=== PATIENT | male | born 1990 | race Caucasian/White ===

== ENCOUNTER 2024-03-25 15:57 | Outpatient (OUT) | payer OTHER, SELFPAY | END 2024-03-25 15:58 | disposition home or self-care (01) | LOC: SLEEP 15:57 | PROVIDERS: PCP Nurse Practitioner Family; Visit Provider Nurse Practitioner Family | DX: G47.33 Obstructive sleep apnea (adult) (pediatric) (principal) | CPT/HCPCS: 95806 ==

== ENCOUNTER 2024-04-22 20:55 | Outpatient (OUT) | payer OTHER, SELFPAY ==
--- OUTSIDE RECORDS SUMMARY | 2024-04-22 20:57 | XMS_ITS | CCD ---
Author Organization [facility] CliniSysd Care Team Providers Care Software Quality Manager Name Role Phone RONNIE VERENICE Unavailable Unavailable NARCISO PETERSEN Unavailable Unavailable NO FAMILY DOCTOR, NO FAMILY DOCTOR Unavailable Unavailable Medications Current Medications Medication Drug Class(es) Dates Sig (Normalized) Sig (Original) omeprazole 10 mg granules for oral suspension (1 source) Proton Pump Inhibitor Start: 04-30-2018 take 10 mg by mouth once daily Omeprazole Magnesium (Prilosec) 10 mg Susp,Delayed Release For Recon Active 10 MG PO Daily April 30, 2018 1:00am Completed/Discontinued Medications Medication Drug Class(es) Dates Sig (Normalized) Sig (Original) cephalexin 500 mg oral capsule (1 source) Cephalosporin Antibacterial Start: 04-30-2018 End: 05-07-2018 take 1 capsule by mouth four times daily Cephalexin (Keflex) 500 mg capsule Discontinued 500 MG PO Four times daily 28 April 30, 2018 1:00am May 07, 2018 1:02am Problems Active Problems Problem Classification Problem Date Documented Da te Episodic/Chronic Coma; stupor; and brain damage (2 sources) Daytime somnolence; Translations: [Somnolence] 02-28-2024 Episodic Other lower respiratory disease (1 source) Snoring; Translations: [Snoring] 02-28-2024 Episodic Other lower respiratory disease (1 source) Snoring; Translations: [Other respiratory abnormalities] 02-28-2024 Episodic Other skin disorders (1 source) Nodule of skin of left hand; Translations: [Localized swelling, mass and lump, left upper limb] 02-28-2024 Episodic Other skin disorders (1 source) Nodule on finger; Translations: [Localized swelling, mass and lump, right upper limb] 02-28-2024 Episodic Other skin disorders (1 source) Localized swelling, mass and lump, right upper limb; Translations: [Localized superficial swelling, mass, or lump] 02-28-2024 Episodic Residual codes; unclassified (1 source) Sleep apnea; Translations: [Sleep apnea, unspecified] 02-28-2024 Chronic Residual codes; unclassified (1 source) Sleep apnea, unspecified; Translations: [Unspecified sleep apnea] 02-28-2024 Chronic Substance-related disorders (2 sources) Nicotine dependence; Translations: [Nicotine dependence, unspecified, uncomplicated] 02-28-2024 Chronic Superficial injury; contusion (1 source) Contusion of left elbow, initial encounter; Translations: [Contusion of left elbow, initial encounter] Onset: 2018 Episodic Unclassified (2 sources) Unspecified sprain of left elbow, initial encounter / S53.402A(ICD-9) Onset: 01-23-2018 Unclassified (1 source) Contusion of left elbow, initial encounter / S50.02XA(ICD-9) Onset: 01-23-2018 Past or Other Problems Problem Classification Problem Date Documented Da te Episodic/Chronic Unclassified (1 source) Unspecified sprain of left elbow, initial encounter; Translations: [Unspecified sprain of left elbow, initial encounter] Onset: 01-23-2018 Results Test Name Value Interpretation Reference Range Facil ity ED Note-Physicianon 02-29-20 ED Note-Physician Basic Information Time Seen: Jc Stark PA-C 02/17/2019 17:47 Chief Complaint Pt via private car, mult Lg dog bites from fam cy[employer]-attempted to break up 2 dogs fight. Sts dog uptodate on shots, pt upto date tetanus. Pt felt mult 'crunches' to both hands, open/gaping mult lacs to both hands, MSP intact. T3. 5 shots etoH History of Present Illness Patient is a 29-year-old male who is left-hand dominant, presents emergency room for dog bites to his left and right hand, states to his dogs were fighting he try baking apart, not sure which dog bit him. Patient states injury occurred about 20 minutes before seen in the emergency room. Patient states his tetanus is up-to-date. Patient states he was not been anywhere else on his arms. Patient states he has not been in his thumbs. Patient denies any fevers, chills, nausea vomiting, abdominal pain, chest pain, shortness of breath, dizziness, or weakness. Review of Systems All organ systems reviewed. Pertinent positive and negative findings were mentioned in the HPI. Physical Exam Vitals & Measurements T: 37.1 ?C (Oral) HR: 130(Peripheral) RR: 22 BP: 143/76 SpO2: 95% HT: 185 cm WT: 105.8 kg BMI: 30.91 General: alert, mild distress, patient appears pale, smells of tobacco, no facial injuries are noted, pleasant and cooperative, very anxious appearing as well, answers questions appropriately and in complete sentences, and follows commands appropriately. Skin: warm, dry there is a 4 cm laceration that dorsal surface of left hand near the fourth and third metacarpal head, no the puncture wounds are noted on the left hand. There is a small puncture wound on the dorsal surface of the right hand, near the third metacarpal head, there is another puncture wound on the palm surface of the third finger, there is a 4 cm laceration in the medial aspects of the right fifth finger, extends from the tip of the finger to right below the PIP joint. Head: no trauma, normocephalic Neck: Trachea midline, no adenopathy, no tenderness Eye: normal conjunctiva, sclera clear ENMT: TM's clear, oral mucosa moist, no pharyngeal erythema or exudate Cardiovascular: regular rate and rhythm, normal peripheral perfusion Respiratory: Lungs CTA, respirations non labored Chest wall: no deformity. Gastrointestinal: soft, non distended, no tenderness, no guarding. Back: No tenderness, Normal ROM, Normal alignment. Extremities: no deformity, mild trauma. See skin exam. Patient does have difficulty with going fingers in both his hands. No other injuries are noted on the hands as well as the fingers and forearms and wrists. Patient does have increased pain on examination. Patient agrees to digital blocks for further evaluation. Neurological: oriented x 4, LOC appropriate for age, CN II-XII intact, motor strength equal & normal bilaterally, sensation equal & normal bilaterally, speech normal Psychiatric: cooperative, affect appropriate for age, normal judgement, normal psychiatric thoughts. Procedure Left dorsal 4 cm laceration, right fifth finger with a 4 cm laceration on the medial aspects of the finger, there is also a 1 cm laceration palm surface near the right middle finger: Digital blocks with lidocaine and bupivacaine, wounds were cleansed and irrigated with Hibiclens and normal saline, there was no tenderness ligament exposure, no deformity was noted, left dorsal hand was closed with 7 sutures of 3-0 nylon, and the right fifth finger was closed with 7 sutures of 3-0 nylon as well, patient verbally understands that complete closure of the laceration repairs, secondary to dog bites and possible increase of infection, as whether was room left for drainage. Patient tolerated procedure well. Wounds were cleansed again and bacitracin and sterile dressings were applied. Patient was given wound care instructions. All questions were answered. Medical Decision Making Vital signs reviewed. Nursing notes reviewed. Medical record reviewed. Hand injury workup: Imaging of both hands for trauma related injuries secondary to dog bites, digital blocks with lidocaine and bupivacaine, and orthopedic consult. IM morphine 4 mg. Patient's tetanus is up-to-date. No labs indicated at this time. Patient states his tetanus is up-to-date. 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 No acute bony process was noted on imaging, there was no tenderness or ligament exposure during hand examination, wounds were irrigated with hibiclens and normal saline, wounds were partially closed, to allow for drainage, patient verbally understood why they cannot be apparently closed. She had no reaction to Ancef antibiotic. Patient has symptom relief with IM morphine. Patient was given a prescription for Augmentin and Percocet, patient was instructed not to drink any alcohol taking Augmentin, patient was given wound care instructions, patient was instructed to follow with Dr. Kiel sherwood orthopedic doctor program evaluation consultant, as well as Dr. Rojas medical doctor on-call, hasn't seen Dr. Menendez, call the offices to schedule an appointment to be seen in 3 days or sooner for wound check and suture removal wall 10-12 days, patient was also instructed to return back to emergency room for any worsening symptoms, concerns, or complications, and patient agree with plan. Assessment/Plan 1. Dog bite (W54.0XXA: Bitten by dog, initial encounter) Ordered: acetaminophen-oxycodon e, 1 tab(s), Oral, TID as needed for pain, 15 tab(s), Refill(s) 0 2. Puncture wound without foreign body of right hand, initial encounter (S61.431A: Puncture wound without foreign body of right hand, initial encounter) 3. Hand injury (S69.90XA: Unspecified injury of unspecified wrist, hand and finger(s), initial encounter) Orders: amoxicillin-clavulanat e, = 1 tab(s), Oral, q12hr, X 10 day(s), # 20 tab(s), Refills(s) 0 bupivacaine, 150 mg, 30 mL, Injection, IntraDermal, Once, Stop date 02/17/19 17:52:00 EDT, STAT, Start date 02/17/19 17:52:00 EDT cefazolin, 2 gram = 2 EA, Injection, IntraMuscular, Once, Stop date 02/17/19 19:24:00 EDT, STAT, Start date 02/17/19 19:24:00 EDT lidocaine, 10 mg, 1 mL, Injection, IntraDermal, Once, Stop date 02/17/19 17:52:00 EDT, STAT, Start date 02/17/19 17:52:00 EDT morphine, 4 mg = 2 mL, Injection, IntraMuscular, Once, Stop date 02/17/19 17:52:00 EDT, STAT, Start date 02/17/19 17:52:00 EDT ondansetron, 4 mg = 1 tab(s), Tab-Dis, Oral, Once, Stop date 02/17/19 18:16:00 EDT, STAT, Start date 02/17/19 18:16:00 EDT Wound Care Routine XR Hand 3+ Views Left XR Hand 3+ Views Right Medications Administered Given bupivacaine 0.5% PF Inj 30 mL, 150 mg, IntraDermal ceFAZolin 1 g Inj, 2 gram, IntraMuscular lidocaine 1% Injection 20 mL, 10 mg, IntraDermal morphine 2 mg/mL Inj, 4 mg, IntraMuscular Zofran ODT 4 mg Tab-Dis, 4 mg, Oral Disposition Plan Patient Discharge Condition Stable Discharge Prescription List Prescriptions Augmentin 875 mg oral tablet, 1 tab(s), Oral, q12hr Percocet 325 mg-5 mg Tab, 1 tab(s), Oral, TID, PRN Follow-up With When Contact Information Ben ROJAS In 3 days 02/20/2019 EDT [address] [place] [address]- Business (1) Additional Instructions: Please follow-up with Dr. Kapoor, orthopedic doctor program evaluation consultant, and Dr. Rojas, medical doctor program evaluation consultant, call her office to schedule appointments to be seen in 3 days or sooner for wound check, and suture removal in about 10-12 days, please keep your wound clean and dry, though be drainage, there was not a complete closure because of dog bites and increase chance of infection, take her Augmentin and Percocet prescribed, and return to emergency room for any worsening symptoms, concerns, or complications. Abrahan Kapoor In 3 days 02/20/2019 EDT [address] [place] [address]- Business (1) Additional Instructions: Johana Menendez In 3 days [address] [place] [phone]- Business (1) Additional Instructions: Patient Education Sutured Wound Care, [place] Animal Bite, Ylfx-ov-Usrv Attestation Patient was treated and evaluated by the Physician Glassware Selector. The attending physician was Dr. Gómez in the Emergency Department at all times and supervised care. The case was discussed with the attending physician and diagnostics were reviewed as needed. Problem List/Past Medical History Ongoing Smoker Historical No qualifying data Medications Inpatient No active inpatient medications Home Augmentin 875 mg oral tablet, 1 tab(s), Oral, q12hr ibuprofen [facility] 325 mg-5 mg oral tablet, 1 tab(s), Oral, q4hr, PRN Percocet 325 mg-5 mg Tab, 1 tab(s), Oral, TID, PRN Allergies No Known Allergies Social History Alcohol - High Risk, 02/17/2019 Current, Liquor, 3-5 times per week, 02/17/2019 Current, 1-2 times per week, 05/01/2018 Substance Abuse - Denies Substance Abuse, 02/17/2019 Current, Marijuana, 05/01/2018 Tobacco - High Risk, 02/17/2019 10 or more cigarettes (1/2 pack or more)/day in last 30 days Tobacco Use:. Cigarettes, 02/17/2019 Lab Results No qualifying data available. Diagnostic Results XR Hand 3+ Views Left * Preliminary * 02/17/19 19:31:11 : Soft tissue swelling, No bony fractures noted, no foreign body retention. Read By: Jc Stark PA-C XR Hand 3+ Views Right * Preliminary * 02/17/19 19:31:26 : Soft tissue swelling, no acute bony processes noted. Read By: Jc Stark PA-C [facility] Comment on above: Result Comment: Elec tronically Signed By: Jc Stark PA-C\.br\Date and Time Signed: 02/17/19 20:25 EDT\.br\Electronically Co-Signed By: Nando Gómez DO\.br\Date and Time Co-Signed: 02/28/19 07:09 EDT Coding Summary.on 02-19-2019 Coding Summary. CODING DATE: 02/19/2019 FINAL [facility] STATUS: Home (Routine DC) PAYOR: Commercial Insurance APC DESCRIPTION 5023 Level 3 Type A ED Visits ADMIT DX: REASON FOR VISIT DX: S61.452A Open bite of left hand, initial encounter S61.451A Open bite of right hand, initial encounter FINAL DX: PRINCIPAL: S61.452A Open bite of left hand, initial encounter SECONDARY: S61.256A Open bite of right little finger without damage to nail, initial encounter S61.431A Puncture wound without foreign body of right hand, initial encounter W54.0XXA Bitten by dog, initial encounter F17.210 Nicotine dependence, cigarettes, uncomplicated PYMT PROC APC STAT DESCRIPTION DOCTOR NAME DATE NOTE: The code number assigned matches the documented diagnosis and / or procedure in the patient's chart. However, the narrative phrase printed from the coding software may appear abbreviated, or result in slightly different terminology. Revised Coded By: Edyta Jones Revised Date Saved: 02/19/2019 11:20 am [facility] XR Hand 3+ Views Lefton XR Hand 3+ Views Left Exam Date/Time: 02/17/2019 18:16 EDT Reason for Exam: Pain, Traumatic Report IMPRESSION: NEGATIVE LEFT HAND ACUTE FRACTURE OR DISLOCATION. SOFT TISSUE INJURY WITHOUT RADIOPAQUE FOREIGN BODY. CLINICAL HISTORY: Pain, Traumatic COMPARISONS: 04/15/2018 FINDINGS: AP, lateral and oblique views of the left hand demonstrate no evidence of fracture, dislocation, bone or joint abnormality, except for old healed fracture of the second metacarpal. There is soft tissue injury over the lateral aspect of the second metacarpal head and neck. There are no radiopaque foreign body. FINAL REPORT Dictated: 02/18/2019 7:09 am Carlton Cole M.D. Signed (Electronic Signature): 02/18/2019 7:09 am Signed by: Carlton Cole M.D. Transcribed by: ANGELI Technologist: JEREMIE Eduardo [facility] XR Hand 3+ Views Righton XR Hand 3+ Views Right Exam Date/Time: 02/17/2019 18:16 EDT Reason for Exam: Pain, Traumatic Report IMPRESSION: NEGATIVE RIGHT HAND FOR ACUTE FRACTURE OR DISLOCATION. SOFT TISSUE LACERATION. CLINICAL HISTORY: Pain, Traumatic COMPARISONS: NONE AVAILABLE FINDINGS: AP, lateral and oblique views of the right hand demonstrate no evidence of fracture, dislocation, bone or joint abnormality. There is a soft tissue laceration over the right and between second and third MP joint area. FINAL REPORT Dictated: 02/18/2019 7:04 am Carlton Cole M.D. Signed (Electronic Signature): 02/18/2019 7:04 am Signed by: Carlton Cole M.D. Transcribed by: ANGELI Technologist: JEREMIE Eduardo [facility] ED Clinical Summaryon 2018 ED Clinical Summary [place] [id number] ED Clinical Summary Person Information Name: SHEILA FARMER [place] Age: 29 Years : 1990 12:00 AM Sex: Male Language: Beninese PCP: Johana Menendez DO Marital Status: Single Phone: [phone] Visit Id: Visit Reason: Multiple lacerations; Injury caused by animal bite; BOTH HANDS LACERATION Speciality: Acuity: 3 Enc Type: Emergency Med Service: Emergency Arrival: 02/17/2019 5:28 PM Discharge: 02/17/2019 7:59 PM LOS: 000 02:31 Checkin: 02/17/2019 5:28 PM Checkout: 02/17/2019 7:59 PM Dispo Type: Home (Routine DC) EVENTS: Event Name Event Status Request Date/Time Start Date/Time Complete Date/Time Arrive Complete 02/17/2019 5:28 PM 02/17/2019 5:28 PM 02/17/2019 5:28 PM Document Home Meds Request 02/17/2019 5:28 PM Triage Complete 02/17/2019 5:28 PM 02/17/2019 5:47 PM 02/17/2019 5:47 PM Bed Assign Complete 02/17/2019 5:39 PM 02/17/2019 5:39 PM 02/17/2019 5:[address] Exam Complete 02/17/2019 5:39 PM 02/17/2019 5:47 PM 02/17/2019 5:47 PM RN Exam Complete 02/17/2019 5:39 PM 02/17/2019 5:51 PM 02/17/2019 5:51 PM Trauma Request 02/17/2019 5:39 PM Patient Care Complete 02/17/2019 5:46 PM 02/17/2019 6:30 PM Registration Complete 02/17/2019 5:47 PM 02/17/2019 6:29 PM 02/17/2019 6:[address] Exam Complete 02/17/2019 5:48 PM 02/17/2019 5:48 PM 02/17/2019 5:48 PM Meds Admin Complete 02/17/2019 5:55 PM 02/17/2019 6:05 PM X-Ray Complete 02/17/2019 5:55 PM 02/17/2019 6:10 PM 02/17/2019 6:16 PM Wet Read Complete 02/17/2019 6:16 PM 02/17/2019 6:18 PM 02/17/2019 6:18 PM Meds Admin Complete 02/17/2019 6:16 PM 02/17/2019 6:20 PM Reg Complete Request 02/17/2019 6:29 PM Meds Admin Complete 02/17/2019 7:25 PM 02/17/2019 7:38 PM Patient Care Request 02/17/2019 7:25 PM Discharge Complete 02/17/2019 7:30 PM 02/17/2019 7:59 PM 02/17/2019 7:59 PM Transfer Complete 02/17/2019 7:59 PM 02/17/2019 7:59 PM 02/17/2019 7:59 PM ADDRESS: [address] [facility] [id number] PHYS DOC NOTES: MEDICAL INFORMATION: Prescriptions Given: Prescription Display acetaminophen-oxycodon e (Percocet 325 mg-5 mg Tab) 1 tab(s), Oral, TID as needed for pain, 15 tab(s), Refill(s) 0 amoxicillin-clavulanat e (Augmentin 875 mg oral tablet) = 1 tab(s), Oral, q12hr, X 10 day(s), # 20 tab(s), Refills(s) 0 PATIENT EDUCATION INFORMATION: Instructions: Sutured Wound Care, Qrug-cs-Dmjz; Animal Bite, Dmxj-gi-Rweg Follow up: With: Address: When: Ben ROJAS [address] [place] [phone] Business (1) In 3 days 02/20/2019 Comments: Please follow-up with Dr. Kapoor, orthopedic doctor program evaluation consultant, and Dr. Rojas, medical doctor program evaluation consultant, call her office to schedule appointments to be seen in 3 days or sooner for wound check, and suture removal in about 10-12 days, please keep your wound clean and dry, though be drainage, there was not a complete closure because of dog bites and increase chance of infection, take her Augmentin and Percocet prescribed, and return to emergency room for any worsening symptoms, concerns, or complications. With: Address: When: Abrahan Kapoor [address] [place] [address] Business (1) In 3 days 02/20/2019 With: Address: When: Johana Menendez [address] [place] [phone] Business (1) In 3 days DIAGNOSIS: 1:Dog bite; 2:Puncture wound without foreign body of right hand, initial encounter; 3:Hand injury Normal [facility] ED Patient Education Noteon 02-17-2019 ED Patient Education Note Family Medicine Sutured Wound Care Sutures are stitches that can be used to close wounds. Caring for your wound can help stop infection and lessen pain. HOME CARE ? Rest and raise (elevate) the injured area until the pain and puffiness (swelling) go away. ? Only take medicines as told by your doctor. ? Clean the wound gently with mild soap and water once a day after the first 2 days. Rinse off the soap. Pat the area dry with a clean towel. Do not rub the wound. ? Change the bandage (dressing) as told by your doctor. If the bandage sticks, soak it off with soapy water. Stop using a bandage after 2 days or after the wound stops leaking fluid. ? Put cream on the wound as told by your doctor. ? Do not stretch the wound. ? Drink enough fluids to keep your pee (urine) clear or pale yellow. ? See your doctor to have the sutures removed. ? Use sunscreen or sunblock on the wound after it heals. GET HELP RIGHT AWAY IF: ? Your wound gets red, puffy, hot, or tender. ? You have more pain in the wound. ? You have a red streak that goes away from the wound. ? You see yellowish-white fluid (pus) coming out of the wound. ? You have a fever. ? You have chills and start to shake. ? You notice a bad smell coming from the wound. ? Your wound will not stop bleeding. MAKE SURE YOU: ? Understand these instructions. ? Will watch your condition. ? Will get help right away if you are not doing well or get worse. Document Released: 10/16/2008 Document Revised: 07/22/2012 Document Reviewed: 09/03/2011 ExitCare? Patient Information ?2015 [employer]. This information is not intended to replace advice given to you by your health care provider. Make sure you discuss any questions you have with your health care provider. Animal Bite Animal bite wounds can get infected. It is important to get proper medical treatment. Ask your doctor if you need a rabies shot. HOME CARE ? Follow your doctor's instructions for taking care of your wound. ? Only take medicine as told by your doctor. ? Take your medicine (antibiotics) as told. Finish them even if you start to feel better. ? Keep all doctor visits as told. You may need a tetanus shot if: ? You cannot remember when you had your last tetanus shot. ? You have never had a tetanus shot. ? The injury broke your skin. If you need a tetanus shot and you choose not to have one, you may get tetanus. Sickness from tetanus can be serious. GET HELP RIGHT AWAY IF: ? Your wound is warm, red, sore, or puffy (swollen). ? You notice yellowish-white fluid (pus) or a bad smell coming from the wound. ? You see a red line on the skin coming from the wound. ? You have a fever, chills, or you feel sick. ? You feel sick to your stomach (nauseous), or you throw up (vomit). ? Your pain does not go away, or it gets worse. ? You have trouble moving the injured part. ? You have questions or concerns. MAKE SURE YOU: ? Understand these instructions. ? Will watch your condition. ? Will get help right away if you are not doing well or get worse. Document Released: 04/30/2006 Document Revised: 07/22/2012 Document Reviewed: 12/20/2011 ExitCare? Patient Information ?2015 [employer]. This information is not intended to replace advice given to you by your health care provider. Make sure you discuss any questions you have with your health care provider. Normal [facility] ED Patient Summaryon 019 ED Patient Summary [place] [id number] Patient Discharge Instructions Person Information Name: SHEILA FARMER Age: 29 Years Arrival Date: 02/17/2019 5:28 PM Discharge Diagnosis: 1:Dog bite; 2:Puncture wound without foreign body of right hand, initial encounter; 3:Hand injury Primary Care Physician: Johana Menendez DO Provider Information Primary Provider: Nando Gómez DO Advanced Director Of Corporate Sponsorships:Jc Stark PA-C The exam and treatment you received in the Emergency Department were for an urgent problem and are not intended as complete care. It is important that you follow up with a doctor, nurse practitioner, or physician?s assisted living assistant for ongoing care. If your symptoms become worse or you do not improve as expected and you are unable to reach your usual health care provider, you should return to the Emergency Department. We are available 24 hours a day. SHEILA FARMER has been given the following list of patient education materials, prescriptions and follow-up instructions: Follow-up Instructions: With: Address: When: Ben ROJAS [address] [place] [phone] Business (1) In 3 days 02/20/2019 Comments: Please follow-up with Dr. Kapoor, orthopedic doctor program evaluation consultant, and Dr. Rojas, medical doctor program evaluation consultant, call her office to schedule appointments to be seen in 3 days or sooner for wound check, and suture removal in about 10-12 days, please keep your wound clean and dry, though be drainage, there was not a complete closure because of dog bites and increase chance of infection, take her Augmentin and Percocet prescribed, and return to emergency room for any worsening symptoms, concerns, or complications. With: Address: When: Abrahan Kapoor [address] [place] [phone] Business (1) In 3 days 02/20/2019 With: Address: When: Johana Menendez [address] [place], [place] [phone] Business (1) In 3 days In the event that this physician does not participate in your insurance network, please consult with your insurance company to find a nearby participating provider. Patient Education Materials: Sutured Wound Care, Vihw-zh-Tkhi; Animal Bite, Jmkg-ef-Tmud A MESSAGE TO ALL PATIENTS REGARDING OPIOIDS PRESCRIPTION OPIOIDS: WHAT YOU NEED TO KNOW Prescription opioids can be used to help relieve ojfetspn-bs-zzwicm pain and are often prescribed following a surgery or injury, or for certain health conditions. These medications can be an important part of the treatment but also come with serious risks. It is important to work with your healthcare provider to make sure you are getting the safest, most effective care. WHAT ARE THE RISKS AND SIDE EFFECTS OF OPIOID USE? Prescription opioids carry serious risks of addiction and overdose, especially with prolonged use. An opioid overdose, often marked by slowed breathing, can cause sudden . The use of prescription opioids can have a number of side effects as well, even when taken as directed: ? Tolerance?meaning you might need to take more of the medication for the same pain relief ? Physical dependence?meaning you have symptoms of withdrawal when a medication is stopped ? Increased sensitivity to pain ? Constipation ? Nausea, vomiting, and dry mouth ? Sleepiness and dizziness ? Confusion ? Depression ? Low levels of testosterone that can result in lower sex drive, energy, and strength ? Itching and sweating RISKS ARE GREATER WITH: ? History of drug misuse, substance use disorder, or overdose ? Mental health conditions (such as depression or anxiety) ? Sleep apnea ? Older age (65 years and older) ? Avoid alcohol while taking prescription opioids. Also, unless specifically advised by your health care provider, medications to avoid include: ? Benzodiazepines (such as Xanax or Valium) ? Muscle relaxants (such as Soma or Flexeril) ? Hypnotics (such as Ambien or Lunesta) ? Other prescription opioids KNOW YOUR OPTIONS Talk to your health care provider about ways to manage your pain that don?t involve prescription opioids. Some of these options may actually work better and have fewer risks and side effects. Options may include: ? Pain relievers such as acetaminophen, ibuprofen, and naproxen ? Some medication that are also used for depression or seizures ? Physical therapy and exercise ? Cognitive behavioral therapy, a psychological, goal-directed approach, in which patients learn how to modify physical, behavioral, and emotional triggers of pain and stress. IF YOU ARE PRESCRIBED OPIOIDS FOR PAIN: ? Never take opioids in greater amounts or more often than prescribed. ? Follow up with your primary health care provider. o Work together to create a plan on how to manage your pain. o Talk about ways to help manage your pain that don?t involve prescription opioids. o Talk about any and all concerns and side effects. ? Help prevent misuse and abuse o Never sell or share prescription opioids. o Never use another person?s prescription opioids. ? Store prescription opioids in a secure place and out of reach of others (this may include visitors, children, friends, and family). ? Safely dispose of unused prescription opioids: Find your community drug take-back program or your pharmacy mail-back program, or flush them down the toilet, following guidance from the Food and Drug Administration (www.fda.gov/Drugs/Res ourcesForYou). ? Visit www.cdc.gov/drugoverdo se to learn about the risks of opioids abuse and overdose. ? If you believe you may be struggling with addiction, tell your health clinical care leader and ask for guidance or call [facility]?S National Helpline at 7-670-646-UUVK. s Source: US Department of Health and Human Services/Center for Disease Control & Prevention [facility] Medications Given: Medication Dose Route lidocaine 10.00 mg IntraDermal bupivacaine 150.00 mg IntraDermal morphine 4.00 mg IntraMuscular Left Deltoid ondansetron 4.00 mg Oral cefazolin 2.00 gram IntraMuscular Left Deltoid Medication Information: New Medications Printed Prescriptions acetaminophen-oxycodon e (Percocet 325 mg-5 mg Tab) 1 Tabs By Mouth 3 times a day as needed as needed for pain. Refills: 0. amoxicillin-clavulanat e (Augmentin 875 mg oral tablet) 1 Tabs By Mouth every 12 hours for 10 Days. Refills: 0. Medications to Continue with No Changes Other Medications acetaminophen-hydrocod one ([facility] 325 mg-5 mg oral tablet) 1 Tabs By Mouth every 4 hours as needed for pain. Refills: 0. ibuprofen Comment: Pharmacy Information: Thank you for choosing [facility] Patient Education Materials: Sutured Wound Care Sutures are stitches that can be used to close wounds. Caring for your wound can help stop infection and lessen pain. HOME CARE ? Rest and raise (elevate) the injured area until the pain and puffiness (swelling) go away. ? Only take medicines as told by your doctor. ? Clean the wound gently with mild soap and water once a day after the first 2 days. Rinse off the soap. Pat the area dry with a clean towel. Do not rub the wound. ? Change the bandage (dressing) as told by your doctor. If the bandage sticks, soak it off with soapy water. Stop using a bandage after 2 days or after the wound stops leaking fluid. ? Put cream on the wound as told by your doctor. ? Do not stretch the wound. ? Drink enough fluids to keep your pee (urine) clear or pale yellow. ? See your doctor to have the sutures removed. ? Use sunscreen or sunblock on the wound after it heals. GET HELP RIGHT AWAY IF: ? Your wound gets red, puffy, hot, or tender. ? You have more pain in the wound. ? You have a red streak that goes away from the wound. ? You see yellowish-white fluid (pus) coming out of the wound. ? You have a fever. ? You have chills and start to shake. ? You notice a bad smell coming from the wound. ? Your wound will not stop bleeding. MAKE SURE YOU: ? Understand these instructions. ? Will watch your condition. ? Will get help right away if you are not doing well or get worse. Document Released: 10/16/2008 Document Revised: 07/22/2012 Document Reviewed: 09/03/2011 ExitCare? Patient Information ?2015 [employer]. This information is not intended to replace advice given to you by your health care provider. Make sure you discuss any questions you have with your health care provider. Animal Bite Animal bite wounds can get infected. It is important to get proper medical treatment. Ask your doctor if you need a rabies shot. HOME CARE ? Follow your doctor's instructions for taking care of your wound. ? Only take medicine as told by your doctor. ? Take your medicine (antibiotics) as told. Finish them even if you start to feel better. ? Keep all doctor visits as told. You may need a tetanus shot if: ? You cannot remember when you had your last tetanus shot. ? You have never had a tetanus shot. ? The injury broke your skin. If you need a tetanus shot and you choose not to have one, you may get tetanus. Sickness from tetanus can be serious. GET HELP RIGHT AWAY IF: ? Your wound is warm, red, sore, or puffy (swollen). ? You notice yellowish-white fluid (pus) or a bad smell coming from the wound. ? You see a red line on the skin coming from the wound. ? You have a fever, chills, or you feel sick. ? You feel sick to your stomach (nauseous), or you throw up (vomit). ? Your pain does not go away, or it gets worse. ? You have trouble moving the injured part. ? You have questions or concerns. MAKE SURE YOU: ? Understand these instructions. ? Will watch your condition. ? Will get help right away if you are not doing well or get worse. Document Released: 04/30/2006 Document Revised: 07/22/2012 Document Reviewed: 12/20/2011 ExitCare? Patient Information ?2015 [employer]. This information is not intended to replace advice given to you by your health care provider. Make sure you discuss any questions you have with your health care provider. DARIAN Sánchez MICHAEL A , have received the following patient education materials/instructions and have verbalized understanding: Patient Education Materials: Sutured Wound Care, Trto-bt-Dprf; Animal Bite, Xltj-rt-Rqwf Follow-up Instructions: With: Address: When: Ben ROJAS [address] [place], [place] [phone] Business (1) In 3 days 02/20/2019 Comments: Please follow-up with Dr. Kapoor, orthopedic doctor program evaluation consultant, and Dr. Rojas, medical doctor program evaluation consultant, call her office to schedule appointments to be seen in 3 days or sooner for wound check, and suture removal in about 10-12 days, please keep your wound clean and dry, though be drainage, there was not a complete closure because of dog bites and increase chance of infection, take her Augmentin and Percocet prescribed, and return to emergency room for any worsening symptoms, concerns, or complications. With: Address: When: Abrahan Kapoor [address] [place] [address] Business (1) In 3 days 02/20/2019 With: Address: When: Johana Menendez [address] [place] [id number] Business (1) In 3 days Prescriptions: [acetaminophen-oxycodo ne (Percocet 325 mg-5 mg Tab)] [amoxicillin-clavulana te (Augmentin 875 mg oral tablet)] Patient Signature Date Clinician/Nurse Signature ___ Date 02/17/19 19:59:51 [facility] Progress Note-Nurseon 2018 Progress Note-Nurse Report recvd from TATA Salazar, care assumed at this time, see trauma flowsheet for complete documentation. PA at bedside for wound care. 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 The open wound on the index finger is healing quite nicely with the large flap of skin completely off fallen off and replaced with a 3 mm diameter thick scab. No signs of infection. He has approximately 30? of active flexion of the DIP joint 80? of flexion of the PIP joint of the index finger. The wound and the movement of the middle finger are completely normal today. He does not have any complaints of pain at the distal phalanx fracture of the index finger. Swelling and minimal induration remaining. Health Status Allergies: Allergic Reactions (Selected) No Known Allergies Problem list: All Problems Smoker / SNOMED CT 108732145 / Confirmed Added secondary to documentation in Social History. Impression and Plan Impression: Healing wounds/open wounds of the left index and middle fingers. Plan: The patient was to continue using a Band-Aid to protect the scab until it falls off naturally. If he has any difficulty or reinjury. He was to contact me promptly. Otherwise, I will see him on an as-needed basis. He is return to regular duty next shift. Diagnosis: Open wound of left index finger without damage to nail ([id number]-WS S61.201A, Working, Medical), Open wound of left middle finger without damage to nail (INZ07-OP S61.203A, Working, Medical). 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 He has been working with restrictions on the use of his left hand and continuing with daily wound care. He states that he had to use 3 days of indication time because last Sunday. He did too much with his left hand and had increased pain and swelling the following morning.. Health Status Allergies: Allergic Reactions (Selected) No Known Allergies Problem list: All Problems Smoker / SNOMED CT 306677946 / Confirmed Added secondary to documentation in Social History. Objective Objective: Examination of the left middle finger reveals a well-healed wound. No further swelling or redness or warmth. He does have stiffness remaining in the PIP and DIP joints butting both joints to maximum of 20? of flexion. This is slightly improved compared to the last visit. His index finger still has the 1 cm? patch of full-thickness skin graft will adhered to the underlying tissue. Swelling is down, however. Stiffness remains in the DIP and PIP joints. No signs of infection. Impression and Plan Impression: Open wounds, left index and middle fingers, resolving. Plan: He was to continue to protect the patch of skin graft on the index finger continued daily wound care for the index finger only. To begin improvement of motion of all joints of both digits. Restrictions to continue at work until reexamination in 2 weeks. Diagnosis: Open wound of left index finger without damage to nail (KIS45-MS S61.201A, Working, Medical), Open wound of left middle finger without damage to nail ([id number]-VP S61.203A, Working, Medical). 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 He offers no complaints. He states that the movement in both fingers is slowly returning. Has the expected amount of numbness on the distal half of both fingers secondary to trauma. Health Status Allergies: Allergic Reactions (Selected) No Known Allergies Problem list: All Problems Smoker / SNOMED CT 599970271 / Confirmed Added secondary to documentation in Social History. Objective Objective: Examination of the middle finger reveals minimal swelling remaining from the PIP joint distally. The laceration is nicely healed without signs of infection. He has approximately 20? of flexion from full extension of the DIP joint. The skin loss on the end of the index finger demonstrates minor cracking at the DIP flexion crease, otherwise. Progressive healing is noted underneath the full-thickness skin graft, again without signs of infection or drainage. Minimal swelling present. Reexamination of both fingertips is good. He has unchanged stiffness of the DIP joint of the index finger. Impression and Plan Impression: Crushing injuries with lacerations left index and middle fingers, slowly healing. Plan: Patient was to continue wound care to the index finger work on improvement of range of motion of the joints of both digits. He'll remain on no use of left hand at work until reexamination next week. Problems were to be reported promptly. Diagnosis: Open wound of left index finger without damage to nail (ITA14-QB S61.201A, Working, Medical), Open wound of left middle finger without damage to nail ([id number]-MZ S61.203A, Working, Medical). 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 He went to [facility] emergency department where sutures were placed in the wounds. A large patches of full-thickness skin was use as a graft on the index finger wound. He then went to [facility] emergency Department. Once or twice for wound checks. . He just finished a prescription for Keflex 3 days ago. He has not been using Neosporin, but dictates that he use peroxide once or twice a day for wound cleaning and gauze dressing. He has been using to over both wounds, which explains the maceration. Health Status Allergies: Allergic Reactions (Selected) No Known Allergies Problem list: All Problems Smoker / SNOMED CT 010533512 / Confirmed Added secondary to documentation in Social History. Objective Ejective: Examination of the middle finger wound reveals a 3-1/2 cm longitudinal laceration beginning at the PIP flexion crease and extending distally to beyond the DIP flexion crease. Healing is complete, but there is some mild skin maceration and some scab still present with multiple sutures. The index finger reveals a 1 cm? full-thickness autologous skin graft sutured into place on the pad of the finger. The remainder of the open wound is closed with multiple sutures, beginning from the PIP flexion crease and extending to the pad of the finger. Again maceration is present to the entire wound. He is infection or drainage from either wound is noted. Circulatory and neurological status is overall intact. The remainder of the digits are unharmed. Her to have flexion and extension function on both the injured digits, but the expected amount of stiffness is present in the DIP joints and PIP joints of both digits. Impression and Plan Impression: Open wound of the left index and middle fingers, with maceration and incomplete healing. Plan: With great care, the multiple sutures are removed from both wounds. The area of full-thickness skin grafting remained essentially in place but with evidence of doing at the DIP flexion crease, base of the graft. He was advised to report any signs of infection. He was to begin using Neosporin to both wounds twice a day with dressing changes, tube gauze dressing. He was to discontinue the Telfa dressings and continue to use to gauze over the Neosporin twice a day. For wound checks in 1 week. He was to continue with no use of his left hand. Diagnosis: Open wound of left index finger without damage to nail (ORG19-PH S61.201A, Working, Medical), Open wound of left middle finger without damage to nail (SAU88-DE S61.203A, Working, Medical). [facility] Comment on above: Result Comment: Elec tronically Signed By: Nando MIR DO\.br\Date and Time Signed: 05/16/18 12:13 EST ED Note-Physicianon 05-14-19 ED Note-Physician Basic Information Time Seen: Live JEFFERY, Kvng Drew 05/08/2018 16:35 Chief Complaint Left hand index and middle finger wound recheck and possible suture removal. History of Present Illness 28-year-old white male presents emergency room for wound check of his left index and long finger patient has sutures intact spent approximately 8 days since he injury. He is here solely to have his fingers looked at. This is work-related injury patient has yet to follow-up with [employer] will give him information for that appropriate follow-up. Patient is no acute distress. Dressed clean and dry. Work hours and may leave them open to the air in the evening and cleansing with peroxide on a Q-tip. Review of Systems Unless otherwise stated in this report or unable to obtain because of patient's clinical or mental status as evidenced by the medical record. Physical Exam Vitals & Measurements T: 37 ?C (Oral) HR: 98(Peripheral) RR: 16 BP: 152/85 SpO2: 99% HT: 188 cm WT: 105.2 kg BMI: 29.76 General: Alert and oriented, No acute distress, Comfortable in bed. Eye: Pupils are equal, round and reactive to light, Extraocular movements are intact. HENT: Normocephalic. Musculoskeletal: Normal range of motion, with the exception of left index and long finger which appear to be healing well with no significant redness swelling or drainage sutures intact, Normal strength. Neurologic: Alert, Oriented, Normal sensory, Normal motor function. Cognition and Speech: Oriented, Speech clear and coherent. Psychiatric: Cooperative, Appropriate mood & affect. Integumentary: Warm, Dry, [place] Assessment/Plan Encounter for wound re-check Disposition Plan Patient Discharge Condition Stable Discharge Prescription List Prescriptions No active prescription medications Follow-up With When Contact Information [facility]: [facility] [phone] In 3 days 05/11/2018 EST Additional Instructions: Call tomorrow for recheck and to have sutures removed in 10-12 days after the initial injury. Continue just changes and no use of left hand while at work. Patient Education Hand Contusion, Tjby-er-Pcnb Attestation Dr Vega has been informed about evaluation and treatment of patient during this visit. This report was transcribed using voice recognition software. Every effort was made to ensure accuracy, however, inadvertently computerized supervisor safety deposit mistakes may be present. Patient was treated and evaluated by the physician assisted living assistant. The attending physician was in the emergency department at all times and supervised care. The case was discussed with the attending physician and diagnostics were reviewed as needed Problem List/Past Medical History Ongoing Smoker Historical No qualifying data Medications Inpatient No active inpatient medications Home ibuprofen [facility] 325 mg-5 mg oral tablet, 1 tab(s), Oral, q4hr, PRN Allergies No Known Allergies Social History Alcohol Current, 1-2 times per week, 05/01/2018 Substance Abuse Current, Marijuana, 05/01/2018 Lab Results No qualifying data available. Diagnostic Results No qualifying data available. [facility] Comment on above: Result Comment: Elec tronically Signed By: Kvng Mancini PA-C\.br\Date and Time Signed: 05/08/18 16:58 EST\.br\Electronically Co-Signed By: Jess Vega DO\.br\Date and Time Co-Signed: 05/14/18 16:17 EST Coding Summary.on 05-09-2018 Coding Summary. CODING DATE: 05/09/2018 FINAL [facility] STATUS: Home (Routine DC) PAYOR: Worker's Compensation ADMIT DX: REASON FOR VISIT DX: Z48.00 Encounter for change or removal of nonsurgical wound dressing FINAL DX: PRINCIPAL: Z48.00 Encounter for change or removal of nonsurgical wound dressing SECONDARY: PROCEDURES DOCTOR NAME DATE NOTE: The code number assigned matches the documented diagnosis and / or procedure in the patient's chart. However, the narrative phrase printed from the coding software may appear abbreviated, or result in slightly different terminology. Coded By: Edyta Jones Date Saved: 05/09/2018 07:54 am [facility] ED Clinical Summaryon 2017 ED Clinical Summary [address] [address] ED Clinical Summary Person Information Name: SHEILA FARMER [place] Age: 28 Years : 1990 12:00 AM Sex: Male Language: Beninese PCP: Johana Menendez DO Marital Status: Single Phone: [phone] Visit Id: Visit Reason: Wound reevaluation with or without suture removal; SUTURE CHECK Speciality: Acuity: 4 Enc Type: Emergency Med Service: Emergency Arrival: 05/08/2018 3:49 PM Discharge: 05/08/2018 5:16 PM LOS: 000 01:27 Checkin: 05/08/2018 3:49 PM Checkout: 05/08/2018 5:16 PM Dispo Type: Home (Routine DC) EVENTS: Event Name Event Status Request Date/Time Start Date/Time Complete Date/Time Arrive Complete 05/08/2018 3:49 PM 05/08/2018 3:49 PM 05/08/2018 3:49 PM Document Home Meds Request 05/08/2018 3:49 PM Triage Complete 05/08/2018 3:49 PM 05/08/2018 4:02 PM 05/08/2018 4:02 PM Workers Comp Request 05/08/2018 4:02 PM Bed Assign Complete 05/08/2018 4:30 PM 05/08/2018 4:30 PM 05/08/2018 4:[address] Exam Complete 05/08/2018 4:30 PM 05/08/2018 4:35 PM 05/08/2018 4:35 PM RN Exam Complete 05/08/2018 4:30 PM 05/08/2018 4:53 PM 05/08/2018 4:53 PM Registration Complete 05/08/2018 4:35 PM 05/08/2018 4:45 PM 05/08/2018 4:45 PM Reg Complete Request 05/08/2018 4:[address] Exam Complete 05/08/2018 4:51 PM 05/08/2018 4:51 PM 05/08/2018 4:51 PM Registration Complete 05/08/2018 4:51 PM 05/08/2018 5:05 PM 05/08/2018 5:05 PM Discharge Complete 05/08/2018 4:57 PM 05/08/2018 5:16 PM 05/08/2018 5:16 PM Transfer Complete 05/08/2018 5:16 PM 05/08/2018 5:16 PM 05/08/2018 5:16 PM ADDRESS: [address] [place] [phone] PHYS DOC NOTES: MEDICAL INFORMATION: Prescriptions Given: PATIENT EDUCATION INFORMATION: Instructions: Hand Contusion, [id number] Follow up: With: Address: When: [facility]: [facility] [place] [phone] In 3 days 05/11/2018 Comments: Call tomorrow for recheck and to have sutures removed in 10-12 days after the initial injury. Continue just changes and no use of left hand while at work. DIAGNOSIS: Encounter for wound re-check [facility] ED Patient Education Noteon 05-08-2018 ED Patient Education Note Family Medicine Hand Contusion A hand contusion is a deep bruise to the hand. Contusions happen when an injury causes bleeding under the skin. Signs of bruising include pain, puffiness (swelling), and discolored skin. The contusion may turn blue, purple, or yellow. HOME CARE ? Put ice on the injured area. ? Put ice in a plastic bag. ? Place a towel between your skin and the bag. ? Leave the ice on for 15-20 minutes, 03-04 times a day. ? Only take medicines as told by your doctor. ? Use an elastic wrap only as told. You may remove the wrap for sleeping, showering, and bathing. Take the wrap off if you lose feeling (have numbness) in your fingers, or they turn blue or cold. Put the wrap on more loosely. ? Keep the hand raised (elevated) with pillows. ? Avoid using your hand too much if it is painful. GET HELP RIGHT AWAY IF: ? You have more redness, puffiness, or pain in your hand. ? Your puffiness or pain does not get better with medicine. ? You lose feeling in your hand, or you cannot move your fingers. ? Your hand turns cold or blue. ? You have pain when you move your fingers. ? Your hand feels warm. ? Your contusion does not get better in 2 days. MAKE SURE YOU: ? Understand these instructions. ? Will watch this condition. ? Will get help right away if you are not doing well or you get worse. Document Released: 10/16/2008 Document Revised: 09/14/2014 Document Reviewed: 10/21/2012 ExitCare? Patient Information ?2015 [employer]. This information is not intended to replace advice given to you by your health care provider. Make sure you discuss any questions you have with your health care provider. [facility] ED Patient Summaryon 018 ED Patient Summary [place] [id number] Patient Discharge Instructions Person Information Name: SHEILA FARMER Age: 28 Years Arrival Date: 05/08/2018 3:49 PM Discharge Diagnosis: Encounter for wound re-check Primary Care Physician: Johana Menendez DO Provider Information Primary Provider: Jess Vega DO Advanced Director Of Corporate Sponsorships:Kvng Mancini PA-C The exam and treatment you received in the Emergency Department were for an urgent problem and are not intended as complete care. It is important that you follow up with a doctor, nurse practitioner, or physician?s assisted living assistant for ongoing care. If your symptoms become worse or you do not improve as expected and you are unable to reach your usual health care provider, you should return to the Emergency Department. We are available 24 hours a day. SHEILA FARMER has been given the following list of patient education materials, prescriptions and follow-up instructions: Follow-up Instructions: With: Address: When: [facility]: [facility] [phone] In 3 days 05/11/2018 Comments: Call tomorrow for recheck and to have sutures removed in 10-12 days after the initial injury. Continue just changes and no use of left hand while at work. In the event that this physician does not participate in your insurance network, please consult with your insurance company to find a nearby participating provider. Patient Education Materials: Hand Contusion, Igoz-zm-Lzdl A MESSAGE TO ALL PATIENTS REGARDING OPIOIDS PRESCRIPTION OPIOIDS: WHAT YOU NEED TO KNOW Prescription opioids can be used to help relieve ahettxtj-cj-montxg pain and are often prescribed following a surgery or injury, or for certain health conditions. These medications can be an important part of the treatment but also come with serious risks. It is important to work with your healthcare provider to make sure you are getting the safest, most effective care. WHAT ARE THE RISKS AND SIDE EFFECTS OF OPIOID USE? Prescription opioids carry serious risks of addiction and overdose, especially with prolonged use. An opioid overdose, often marked by slowed breathing, can cause sudden . The use of prescription opioids can have a number of side effects as well, even when taken as directed: ? Tolerance?meaning you might need to take more of the medication for the same pain relief ? Physical dependence?meaning you have symptoms of withdrawal when a medication is stopped ? Increased sensitivity to pain ? Constipation ? Nausea, vomiting, and dry mouth ? Sleepiness and dizziness ? Confusion ? Depression ? Low levels of testosterone that can result in lower sex drive, energy, and strength ? Itching and sweating RISKS ARE GREATER WITH: ? History of drug misuse, substance use disorder, or overdose ? Mental health conditions (such as depression or anxiety) ? Sleep apnea ? Older age (65 years and older) ? Avoid alcohol while taking prescription opioids. Also, unless specifically advised by your health care provider, medications to avoid include: ? Benzodiazepines (such as Xanax or Valium) ? Muscle relaxants (such as Soma or Flexeril) ? Hypnotics (such as Ambien or Lunesta) ? Other prescription opioids KNOW YOUR OPTIONS Talk to your health care provider about ways to manage your pain that don?t involve prescription opioids. Some of these options may actually work better and have fewer risks and side effects. Options may include: ? Pain relievers such as acetaminophen, ibuprofen, and naproxen ? Some medication that are also used for depression or seizures ? Physical therapy and exercise ? Cognitive behavioral therapy, a psychological, goal-directed approach, in which patients learn how to modify physical, behavioral, and emotional triggers of pain and stress. IF YOU ARE PRESCRIBED OPIOIDS FOR PAIN: ? Never take opioids in greater amounts or more often than prescribed. ? Follow up with your primary health care provider. o Work together to create a plan on how to manage your pain. o Talk about ways to help manage your pain that don?t involve prescription opioids. o Talk about any and all concerns and side effects. ? Help prevent misuse and abuse o Never sell or share prescription opioids. o Never use another person?s prescription opioids. ? Store prescription opioids in a secure place and out of reach of others (this may include visitors, children, friends, and family). ? Safely dispose of unused prescription opioids: Find your community drug take-back program or your pharmacy mail-back program, or flush them down the toilet, following guidance from the Food and Drug Administration (www.fda.gov/Drugs/Res ourcesForYou). ? Visit www.cdc.gov/drugoverdo se to learn about the risks of opioids abuse and overdose. ? If you believe you may be struggling with addiction, tell your health clinical care leader and ask for guidance or call [facility]?S National Helpline at 4-393-499-XGBM. x Source: US Department of Health and Human Services/Center for Disease Control & Prevention [facility] Medications Given: Medication Dose Route No medications found. Medication Information: Medications to Continue with No Changes Other Medications acetaminophen-hydrocod one ([place] 325 mg-5 mg oral tablet) 1 Tabs By Mouth every 4 hours as needed for pain. Refills: 0. ibuprofen Comment: Pharmacy Information: Thank you for choosing [facility] Patient Education Materials: Hand Contusion A hand contusion is a deep bruise to the hand. Contusions happen when an injury causes bleeding under the skin. Signs of bruising include pain, puffiness (swelling), and discolored skin. The contusion may turn blue, purple, or yellow. HOME CARE ? Put ice on the injured area. ? Put ice in a plastic bag. ? Place a towel between your skin and the bag. ? Leave the ice on for 15-20 minutes, 03-04 times a day. ? Only take medicines as told by your doctor. ? Use an elastic wrap only as told. You may remove the wrap for sleeping, showering, and bathing. Take the wrap off if you lose feeling (have numbness) in your fingers, or they turn blue or cold. Put the wrap on more loosely. ? Keep the hand raised (elevated) with pillows. ? Avoid using your hand too much if it is painful. GET HELP RIGHT AWAY IF: ? You have more redness, puffiness, or pain in your hand. ? Your puffiness or pain does not get better with medicine. ? You lose feeling in your hand, or you cannot move your fingers. ? Your hand turns cold or blue. ? You have pain when you move your fingers. ? Your hand feels warm. ? Your contusion does not get better in 2 days. MAKE SURE YOU: ? Understand these instructions. ? Will watch this condition. ? Will get help right away if you are not doing well or you get worse. Document Released: 10/16/2008 Document Revised: 09/14/2014 Document Reviewed: 10/21/2012 ExitCare? Patient Information ?2015 [employer]. This information is not intended to replace advice given to you by your health care provider. Make sure you discuss any questions you have with your health care provider. DARIAN Sánchez MICHAEL A , have received the following patient education materials/instructions and have verbalized understanding: Patient Education Materials: Hand Contusion, Thkf-he-Lobo Follow-up Instructions: With: Address: When: [facility]: [facility] [place] [phone] In 3 days 05/11/2018 Comments: Call tomorrow for recheck and to have sutures removed in 10-12 days after the initial injury. Continue just changes and no use of left hand while at work. Prescriptions: Patient Signature Date Clinician/Nurse Signature ___ Date 05/08/18 17:16:26 [facility] Coding Summary.on 05-02-2018 Coding Summary. CODING DATE: 05/02/2018 FINAL [facility] STATUS: Home (Routine DC) PAYOR: Worker's Compensation ADMIT DX: REASON FOR VISIT DX: M79.645 Pain in left finger(s) FINAL DX: PRINCIPAL: S61.211D Laceration without foreign body of left index finger without damage to nail, subsequent encounter SECONDARY: S61.213D Laceration without foreign body of left middle finger without damage to nail, subsequent encounter W31.9XXD Contact with unspecified machinery, subsequent encounter M79.645 Pain in left finger(s) Z72.0 Tobacco use PROCEDURES DOCTOR NAME DATE NOTE: The code number assigned matches the documented diagnosis and / or procedure in the patient's chart. However, the narrative phrase printed from the coding software may appear abbreviated, or result in slightly different terminology. Coded By: Kayley Greenfield Date Saved: 05/02/2018 08:18 am [facility] ED Clinical Summaryon 2017 ED Clinical Summary [place] [id number] ED Clinical Summary Person Information Name: SHEILA FARMER/[facility] Age: 28 Years : 1990 12:00 AM Sex: Male Language: Beninese PCP: Johana Menendez DO Marital Status: Single Phone: [phone] Visit Id: Visit Reason: Medication treatment; LACERATION FINGERS LEFT HAND Speciality: Acuity: 5 Enc Type: Emergency Med Service: Emergency Arrival: 04/30/2018 11:55 PM Discharge: 05/01/2018 1:41 AM LOS: 000 01:46 Checkin: 04/30/2018 11:55 PM Checkout: 05/01/2018 1:41 AM Dispo Type: Home (Routine DC) EVENTS: Event Name Event Status Request Date/Time Start Date/Time Complete Date/Time Arrive Complete 04/30/2018 11:55 PM 04/30/2018 11:55 PM 04/30/2018 11:55 PM Document Home Meds Complete 04/30/2018 11:55 PM 05/01/2018 12:10 AM 05/01/2018 12:10 AM Triage Complete 04/30/2018 11:55 PM 05/01/2018 12:07 AM 05/01/2018 12:07 AM Bed Assign Complete 04/30/2018 11:58 PM 04/30/2018 11:58 PM 04/30/2018 11:[address] Exam Complete 04/30/2018 11:58 PM 05/01/2018 12:26 AM 05/01/2018 12:26 AM RN Exam Complete 04/30/2018 11:58 PM 05/01/2018 12:10 AM 05/01/2018 12:10 AM Workers Comp Request 05/01/2018 12:07 AM Registration Complete 05/01/2018 12:26 AM 05/01/2018 12:49 AM 05/01/2018 12:[address] Exam Complete 05/01/2018 12:27 AM 05/01/2018 12:27 AM 05/01/2018 12:27 AM Patient Care Request 05/01/2018 12:31 AM Meds Admin Request 05/01/2018 12:31 AM Reg Complete Request 05/01/2018 12:49 AM Discharge Complete 05/01/2018 1:18 AM 05/01/2018 1:41 AM 05/01/2018 1:41 AM Transfer Complete 05/01/2018 1:41 AM 05/01/2018 1:41 AM 05/01/2018 1:41 AM [facility] [phone] [facility] DOC NOTES: MEDICAL INFORMATION: Prescriptions Given: Prescription Display acetaminophen-hydrocod one ([place] 325 mg-5 mg oral tablet) 1 tab(s), Oral, q4hr for pain, 8 tab(s), Refill(s) 0 Home Meds Display ibuprofen Refills(s) 0 PATIENT EDUCATION INFORMATION: Instructions: Laceration Care, Adult Follow up: With: Address: When: [facility]: [facility] [phone] In 3 days 05/04/2018 DIAGNOSIS: Laceration of multiple sites of left hand and fingers; Pain of left middle finger [facility] ED Note-Physicianon 05-01-20 ED Note-Physician Basic Information Time Seen: Álvaro Alcantara PA-C 05/01/2018 00:26 Chief Complaint [facility] states having pain to area and unable to sleep. states would like something for pain stronger then motrin. last dose of motrin 2129. pt received over 20stitches to left hand History of Present Illness This is a 28-year-old male who presents to the emergency department with a chief complaint of increasing throbbing-like pain to his left index and left middle finger. Patient states that he suffered a accident at work earlier this morning in which his hand was smashed in a press, was seen at [facility] emergency department and had x-rays performed which were negative. He states that they cleaned out the lacerations, and that there was tendon exposed but no tendon involvement. He states that he received 15 stitches in his middle finger, and 11 stitches in his index finger. States that he was told to take wgji-euj-thmqqga Motrin, and elevate the fingers and apply ice, states that he is been doing that all day, and attempted to go to bed, but states that the throbbing is keeping him awake. He rates his pain an 8 on a scale 1-10, he denies other complaints at this time. Review of Systems Unless otherwise stated in this report or unable to obtain because of patient's clinical or mental status as evidenced by the medical record, the patient's positive and negative responses for review of systems for constitutional, eyes, ENT, cardiovascular, respiratory, gastrointestinal, neurological, genitourinary, musculoskeletal, and integument systems and related systems to the presenting problem are either as stated in the HPI or were not pertinent or were negative for the symptoms and/or complaints related to the presenting medical problem. Physical Exam Vitals & Measurements T: 36.2 ?C (Oral) HR: 136(Peripheral) RR: 20 BP: 149/99 SpO2: 96% HT: 188 cm WT: 105.5 kg BMI: 29.85 General: Alert and oriented, No acute distress, Comfortable in bed. Eye: Pupils are equal, round and reactive to light, Extraocular movements are intact. HENT: Normocephalic. Musculoskeletal: Lacerations appreciated to the left index finger and left middle fingers, limited range of motion secondary to pain. Neurologic: Alert, Oriented, Normal sensory, Normal motor function. Cognition and Speech: Oriented, Speech clear and coherent. Psychiatric: Cooperative, Appropriate mood & affect. Integumentary: Edema appreciated to the left index and left middle fingers, there is macerated lacerations appreciated to the fingers with stitches intact. There is no evidence of purulence or discharge, there is no active bleeding noted. Medical Decision Making X-ray report from the patient's visit to [facility] was reviewed and showed no evidence of acute fracture. This was scanned into the chart. Wounds were cleansed, and redressed, and the patient was given a small prescription of hydrocodone for the pain. Assessment/Plan Laceration of multiple sites of left hand and fingers Pain of left middle finger Orders: bacitracin/neomycin/po lymyxin B topical, 1 louisa, Ointment, Topical, TID, STAT, Start date 05/01/18 0:30:00 EST Dressing Care/Change Wound Care Routine Medications Administered Given bacitracin/neomycin/po lymyxin B Top Oint, 1 louisa, Topical Percocet 325 mg-5 mg Tab, 2 tab(s), Oral Percocet 325 mg-5 mg Tab, 1 tab(s), Oral Disposition Plan Patient Discharge Condition Improved Discharge Disposition Discharge home Discharge Prescription List Prescriptions [place] 325 mg-5 mg oral tablet, 1 tab(s), Oral, q4hr, PRN Follow-up With When Contact Information [facility]: [facility] [phone] In 3 days 05/04/2018 EST Additional Instructions: Patient Education Laceration Care, Adult Problem List/Past Medical History Ongoing Smoker Historical No qualifying data Medications Inpatient bacitracin/neomycin/po lymyxin B Top Oint, 1 louisa, Topical, TID Home ibuprofen [place] 325 mg-5 mg oral tablet, 1 tab(s), Oral, q4hr, PRN Allergies No Known Allergies Social History Alcohol Current, 1-2 times per week, 05/01/2018 Substance Abuse Current, Marijuana, 05/01/2018 Lab Results No qualifying data available. Diagnostic Results No qualifying data available. [facility] Comment on above: Result Comment: Elec tronically Signed By: Álvaro Alcantara PA-C\.br\Date and Time Signed: 05/01/18 01:20 EST\.br\Electronically Co-Signed By: Irvin Kerns M.D.\.br\Date and Time Co-Signed: 05/01/18 12:40 EST ED Patient Education Noteon 05-01-2018 ED Patient Education Note Family Medicine Laceration Care, Adult A laceration is a cut or lesion that goes through all layers of the skin and into the tissue just beneath the skin. TREATMENT Some lacerations may not require closure. Some lacerations may not be able to be closed due to an increased risk of infection. It is important to see your caregiver as soon as possible after an injury to minimize the risk of infection and maximize the opportunity for successful closure. If closure is appropriate, pain medicines may be given, if needed. The wound will be cleaned to help prevent infection. Your caregiver will use stitches (sutures), mendel, wound glue (adhesive), or skin adhesive strips to repair the laceration. These tools bring the skin edges together to allow for faster healing and a better cosmetic outcome. However, all wounds will heal with a scar. Once the wound has healed, scarring can be minimized by covering the wound with sunscreen during the day for 1 full year. HOME CARE INSTRUCTIONS For sutures or mendel: ? Keep the wound clean and dry. ? If you were given a bandage (dressing), you should change it at least once a day. Also, change the dressing if it becomes wet or dirty, or as directed by your caregiver. ? Wash the wound with soap and water 2 times a day. Rinse the wound off with water to remove all soap. Pat the wound dry with a clean towel. ? After cleaning, apply a thin layer of the antibiotic ointment as recommended by your caregiver. This will help prevent infection and keep the dressing from sticking. ? You may shower as usual after the first 24 hours. Do not soak the wound in water until the sutures are removed. ? Only take ulif-aeb-dcsmvog or prescription medicines for pain, discomfort, or fever as directed by your caregiver. ? Get your sutures or mendel removed as directed by your caregiver. For skin adhesive strips: ? Keep the wound clean and dry. ? Do not get the skin adhesive strips wet. You may bathe carefully, using caution to keep the wound dry. ? If the wound gets wet, pat it dry with a clean towel. ? Skin adhesive strips will fall off on their own. You may trim the strips as the wound heals. Do not remove skin adhesive strips that are still stuck to the wound. They will fall off in time. For wound adhesive: ? You may briefly wet your wound in the shower or bath. Do not soak or scrub the wound. Do not swim. Avoid periods of heavy perspiration until the skin adhesive has fallen off on its own. After showering or bathing, gently pat the wound dry with a clean towel. ? Do not apply liquid medicine, cream medicine, or ointment medicine to your wound while the skin adhesive is in place. This may loosen the film before your wound is healed. ? If a dressing is placed over the wound, be careful not to apply tape directly over the skin adhesive. This may cause the adhesive to be pulled off before the wound is healed. ? Avoid prolonged exposure to sunlight or tanning lamps while the skin adhesive is in place. Exposure to ultraviolet light in the first year will darken the scar. ? The skin adhesive will usually remain in place for 5 to 10 days, then naturally fall off the skin. Do not pick at the adhesive film. You may need a tetanus shot if: ? You cannot remember when you had your last tetanus shot. ? You have never had a tetanus shot. If you get a tetanus shot, your arm may swell, get red, and feel warm to the touch. This is common and not a problem. If you need a tetanus shot and you choose not to have one, there is a rare chance of getting tetanus. Sickness from tetanus can be serious. SEEK MEDICAL CARE IF: ? You have redness, swelling, or increasing pain in the wound. ? You see a red line that goes away from the wound. ? You have yellowish-white fluid (pus) coming from the wound. ? You have a fever. ? You notice a bad smell coming from the wound or dressing. ? Your wound breaks open before or after sutures have been removed. ? You notice something coming out of the wound such as wood or glass. ? Your wound is on your hand or foot and you cannot move a finger or toe. SEEK IMMEDIATE MEDICAL CARE IF: ? Your pain is not controlled with prescribed medicine. ? You have severe swelling around the wound causing pain and numbness or a change in color in your arm, hand, leg, or foot. ? Your wound splits open and starts bleeding. ? You have worsening numbness, weakness, or loss of function of any joint around or beyond the wound. ? You develop painful lumps near the wound or on the skin anywhere on your body. MAKE SURE YOU: ? Understand these instructions. ? Will watch your condition. ? Will get help right away if you are not doing well or get worse. Document Released: 04/30/2006 Document Revised: 07/22/2012 Document Reviewed: 10/24/2011 ExitCare? Patient Information ?2014 [employer]. This information is not intended to replace advice given to you by your health care provider. Make sure you discuss any questions you have with your health care provider. [facility] ED Patient Summaryon 018 ED Patient Summary [address] [id number] Patient Discharge Instructions Person Information Name: SHEILA FARMER Age: 28 Years Arrival Date: 04/30/2018 11:55 PM Discharge Diagnosis: Laceration of multiple sites of left hand and fingers; Pain of left middle finger Primary Care Physician: Johana Menendez DO Provider Information Primary Provider: Irvin Kerns M.D. Advanced Director Of Corporate Sponsorships:Álvaro Alcantara PA-C The exam and treatment you received in the Emergency Department were for an urgent problem and are not intended as complete care. It is important that you follow up with a doctor, nurse practitioner, or physician?s assisted living assistant for ongoing care. If your symptoms become worse or you do not improve as expected and you are unable to reach your usual health care provider, you should return to the Emergency Department. We are available 24 hours a day. SHEILA FARMER has been given the following list of patient education materials, prescriptions and follow-up instructions: Follow-up Instructions: With: Address: When: [facility]: [facility] [phone] In 3 days 05/04/2018 In the event that this physician does not participate in your insurance network, please consult with your insurance company to find a nearby participating provider. Patient Education Materials: Laceration Care, Adult A MESSAGE TO ALL PATIENTS REGARDING OPIOIDS PRESCRIPTION OPIOIDS: WHAT YOU NEED TO KNOW Prescription opioids can be used to help relieve bqbjtpzb-mh-wqdbwj pain and are often prescribed following a surgery or injury, or for certain health conditions. These medications can be an important part of the treatment but also come with serious risks. It is important to work with your healthcare provider to make sure you are getting the safest, most effective care. WHAT ARE THE RISKS AND SIDE EFFECTS OF OPIOID USE? Prescription opioids carry serious risks of addiction and overdose, especially with prolonged use. An opioid overdose, often marked by slowed breathing, can cause sudden . The use of prescription opioids can have a number of side effects as well, even when taken as directed: ? Tolerance?meaning you might need to take more of the medication for the same pain relief ? Physical dependence?meaning you have symptoms of withdrawal when a medication is stopped ? Increased sensitivity to pain ? Constipation ? Nausea, vomiting, and dry mouth ? Sleepiness and dizziness ? Confusion ? Depression ? Low levels of testosterone that can result in lower sex drive, energy, and strength ? Itching and sweating RISKS ARE GREATER WITH: ? History of drug misuse, substance use disorder, or overdose ? Mental health conditions (such as depression or anxiety) ? Sleep apnea ? Older age (65 years and older) ? Avoid alcohol while taking prescription opioids. Also, unless specifically advised by your health care provider, medications to avoid include: ? Benzodiazepines (such as Xanax or Valium) ? Muscle relaxants (such as Soma or Flexeril) ? Hypnotics (such as Ambien or Lunesta) ? Other prescription opioids KNOW YOUR OPTIONS Talk to your health care provider about ways to manage your pain that don?t involve prescription opioids. Some of these options may actually work better and have fewer risks and side effects. Options may include: ? Pain relievers such as acetaminophen, ibuprofen, and naproxen ? Some medication that are also used for depression or seizures ? Physical therapy and exercise ? Cognitive behavioral therapy, a psychological, goal-directed approach, in which patients learn how to modify physical, behavioral, and emotional triggers of pain and stress. IF YOU ARE PRESCRIBED OPIOIDS FOR PAIN: ? Never take opioids in greater amounts or more often than prescribed. ? Follow up with your primary health care provider. o Work together to create a plan on how to manage your pain. o Talk about ways to help manage your pain that don?t involve prescription opioids. o Talk about any and all concerns and side effects. ? Help prevent misuse and abuse o Never sell or share prescription opioids. o Never use another person?s prescription opioids. ? Store prescription opioids in a secure place and out of reach of others (this may include visitors, children, friends, and family). ? Safely dispose of unused prescription opioids: Find your community drug take-back program or your pharmacy mail-back program, or flush them down the toilet, following guidance from the Food and Drug Administration (www.fda.gov/Drugs/Res ourcesForYou). ? Visit www.cdc.gov/drugoverdo se to learn about the risks of opioids abuse and overdose. ? If you believe you may be struggling with addiction, tell your health clinical care leader and ask for guidance or call [facility]?S National Helpline at 2-885-435-IRLR. n Source: [place] Department of Health and Human Services/Center for Disease Control & Prevention [facility] Medications Given: Medication Dose Route acetaminophen-oxycodon e 1.00 tab(s) Oral acetaminophen-oxycodon e 2.00 tab(s) Oral bacitracin/neomycin/po lymyxin B topical 1.00 louisa Topical Medication Information: New Medications Printed Prescriptions acetaminophen-hydrocod one ([facility] 325 mg-5 mg oral tablet) 1 Tabs By Mouth every 4 hours as needed for pain. Refills: 0. Medications to Continue with No Changes Other Medications ibuprofen Comment: Pharmacy Information: Thank you for choosing [facility] Patient Education Materials: Laceration Care, Adult A laceration is a cut or lesion that goes through all layers of the skin and into the tissue just beneath the skin. TREATMENT Some lacerations may not require closure. Some lacerations may not be able to be closed due to an increased risk of infection. It is important to see your caregiver as soon as possible after an injury to minimize the risk of infection and maximize the opportunity for successful closure. If closure is appropriate, pain medicines may be given, if needed. The wound will be cleaned to help prevent infection. Your caregiver will use stitches (sutures), mendel, wound glue (adhesive), or skin adhesive strips to repair the laceration. These tools bring the skin edges together to allow for faster healing and a better cosmetic outcome. However, all wounds will heal with a scar. Once the wound has healed, scarring can be minimized by covering the wound with sunscreen during the day for 1 full year. HOME CARE INSTRUCTIONS For sutures or mendel: ? Keep the wound clean and dry. ? If you were given a bandage (dressing), you should change it at least once a day. Also, change the dressing if it becomes wet or dirty, or as directed by your caregiver. ? Wash the wound with soap and water 2 times a day. Rinse the wound off with water to remove all soap. Pat the wound dry with a clean towel. ? After cleaning, apply a thin layer of the antibiotic ointment as recommended by your caregiver. This will help prevent infection and keep the dressing from sticking. ? You may shower as usual after the first 24 hours. Do not soak the wound in water until the sutures are removed. ? Only take [id number] or prescription medicines for pain, discomfort, or fever as directed by your caregiver. ? Get your sutures or mendel removed as directed by your caregiver. For skin adhesive strips: ? Keep the wound clean and dry. ? Do not get the skin adhesive strips wet. You may bathe carefully, using caution to keep the wound dry. ? If the wound gets wet, pat it dry with a clean towel. ? Skin adhesive strips will fall off on their own. You may trim the strips as the wound heals. Do not remove skin adhesive strips that are still stuck to the wound. They will fall off in time. For wound adhesive: ? You may briefly wet your wound in the shower or bath. Do not soak or scrub the wound. Do not swim. Avoid periods of heavy perspiration until the skin adhesive has fallen off on its own. After showering or bathing, gently pat the wound dry with a clean towel. ? Do not apply liquid medicine, cream medicine, or ointment medicine to your wound while the skin adhesive is in place. This may loosen the film before your wound is healed. ? If a dressing is placed over the wound, be careful not to apply tape directly over the skin adhesive. This may cause the adhesive to be pulled off before the wound is healed. ? Avoid prolonged exposure to sunlight or tanning lamps while the skin adhesive is in place. Exposure to ultraviolet light in the first year will darken the scar. ? The skin adhesive will usually remain in place for 5 to 10 days, then naturally fall off the skin. Do not pick at the adhesive film. You may need a tetanus shot if: ? You cannot remember when you had your last tetanus shot. ? You have never had a tetanus shot. If you get a tetanus shot, your arm may swell, get red, and feel warm to the touch. This is common and not a problem. If you need a tetanus shot and you choose not to have one, there is a rare chance of getting tetanus. Sickness from tetanus can be serious. SEEK MEDICAL CARE IF: ? You have redness, swelling, or increasing pain in the wound. ? You see a red line that goes away from the wound. ? You have yellowish-white fluid (pus) coming from the wound. ? You have a fever. ? You notice a bad smell coming from the wound or dressing. ? Your wound breaks open before or after sutures have been removed. ? You notice something coming out of the wound such as wood or glass. ? Your wound is on your hand or foot and you cannot move a finger or toe. SEEK IMMEDIATE MEDICAL CARE IF: ? Your pain is not controlled with prescribed medicine. ? You have severe swelling around the wound causing pain and numbness or a change in color in your arm, hand, leg, or foot. ? Your wound splits open and starts bleeding. ? You have worsening numbness, weakness, or loss of function of any joint around or beyond the wound. ? You develop painful lumps near the wound or on the skin anywhere on your body. MAKE SURE YOU: ? Understand these instructions. ? Will watch your condition. ? Will get help right away if you are not doing well or get worse. Document Released: 04/30/2006 Document Revised: 07/22/2012 Document Reviewed: 10/24/2011 ExitCare? Patient Information ?2014 [employer]. This information is not intended to replace advice given to you by your health care provider. Make sure you discuss any questions you have with your health care provider. DARIAN Sánchez MICHAEL A , have received the following patient education materials/instructions and have verbalized understanding: Patient Education Materials: Laceration Care, Adult Follow-up Instructions: With: Address: When: [facility]: [facility] [phone] In 3 days 05/04/2018 Prescriptions: [acetaminophen-hydroco done ([facility] 325 mg-5 mg oral tablet)] Patient Signature Date Clinician/Nurse Signature ___ Date 05/01/18 01:41:46 Normal [facility] Coding Summary.on 04-16-2018 Coding Summary. CODING DATE: 04/16/2018 FINAL [facility] STATUS: Home (Routine DC) PAYOR: Commercial Insurance APC DESCRIPTION 5521 Level 1 Imaging without Contrast ADMIT DX: REASON FOR VISIT DX: S61.452A Open bite of left hand, initial encounter FINAL DX: PRINCIPAL: S61.452A Open bite of left hand, initial encounter SECONDARY: PYMT PROC APC STAT DESCRIPTION DOCTOR NAME DATE NOTE: The code number assigned matches the documented diagnosis and / or procedure in the patient's chart. However, the narrative phrase printed from the coding software may appear abbreviated, or result in slightly different terminology. Coded By: Guadalupe Montes De Oca CphT Date Saved: 04/16/2018 08:44 am Normal [facility] XR Hand 3+ Views Lefton XR Hand 3+ Views Left Exam Date/Time: 04/15/2018 13:55 EST Reason for Exam: Open bite of left hand, & bitten by dog;Other (please specify) Report IMPRESSION: NO ACUTE FRACTURE OR DISLOCATION OF LEFT HAND. COMMENT: Three views of the left hand in comparison to the previous examination on 09/30/2005 reveal no acute fracture or dislocation. There is evidence of old healed fracture of the second metacarpal middle shaft. There is no other bony or joint abnormality seen. Soft tissues are unremarkable. FINAL REPORT Dictated: 04/15/2018 3:53 pm Carlton Cole M.D. Signed (Electronic Signature): 04/15/2018 4:31 pm Signed by: Carlotn Cole M.D. Transcribed by: bentley Technologist: ERENDIRA Eduardo [facility] XR ELBOW LEFT (MIN 3 VIEWS)o n 2018 XR ELBOW LEFT (MIN 3 VIEWS) EXAMINATION: LEFT ELBOW, 4 VIEWSCLINICAL HISTORY: INJURY TO THE LEFT ELBOW IN A FALL, LEFT ELBOW PAINCOMPARISONS: NONE AVAILABLEFINDINGS: AP, lateral, oblique and radial head views of the left elbow demonstrate no evidence of a fracture, dislocation, bone or joint abnormality. Also, there is no evidence of a joint effusion in the left elbow.IMPRESSION: NEGATIVE LEFT ELBOW. Interpreted by:DAISY Hassanigned by:Felix Cervantes MD01/05/18inal result Normal [facility] Vital Signs Date Time Vital Sign Value Performing Clinician Allani thomas 02-28-2024 13:00-0400 Body height 187.96 cm [facility] 02-28-2024 13:00-0400 Body mass index (BMI) [Ratio] 34.7 kg/m2 [facility] 02-28-2024 13:00-0400 Body temperature 98.3 [degF] [facility] 02-28-2024 13:00-0400 Body weight 122.58 kg [facility] 02-28-2024 13:00-0400 Diastolic blood pressure 88 mm[Hg] [facility] 02-28-2024 13:00-0400 Heart rate 68 /min [facility] 02-28-2024 13:00-0400 SaO2% (BldA) [Mass fraction] 95 % [facility] 02-28-2024 13:00-0400 Systolic blood pressure 132 mm[Hg] [facility] Encounters Encounter Date Encounter Type Care Provider Facility Start: 02-28-2024 Patient encounter status [facility] Start: 02-28-2024 End: 02-28-2024 ambulatory [facility] Work Phone: Start: 02-28-2024 End: 02-28-2024 Encounter for general adult medical examination without abnormal findings [facility] Start: 02-28-2024 End: 02-28-2024 Patient encounter procedure [facility] [employer] Work Phone: Start: 01-23-2018 Patient encounter NARCISO PETERSEN Fac ility:8 Start: 2018 End: 2018 Emergency department patient visit VERENICE TRUJILLO [facility] Procedures Date Procedure Procedure Detail Performing Clinician Start: 2018 APPLY JACK WRAP VERENICE TRUJILLO Start: 2018 Radex elbow complete minimum 3 views VERENICE TRUJILLO Plan of Treatment Date Care Activity Detail Author XR Hand - bilateral 3 Views [facility] Payers Date Payer Category Payer Policy ID Private Health Insurance [id number] Self-pay Self Pay [id number] Worker's Compensation Industrial Self Ins Misc [id number] Worker's Compensation Compmanagmnt Hlt s-MCO [id number] Social History Date Type Detail Facility Start: 02-28-2024 Tobacco smoking stat us [facility] Smoker (finding) [facility] Start: 1990 Sex Assigned At Male F [facility] Evaluation note Note Date & Type Note Facility Evaluation note Diagnosis Onset Date Daytime somnolence acute Loud snoring acute Nicotine dependence acute Nodule of finger of right hand acute Sleep apnea acute Wellness examination acute [facility] Work Phone: Summary Purpose Family History No Family History Records FoundNo Family History Records FoundNo Family History Records Found Advance Directives Advance Directive Response Recorded Date/ Time Advance Directives No April 10:16am Chief Complaint and Reason for Visit Chief Complaint Wellness Reason for Visit Daytime somnolence Loud snoring Nicotine dependence Nodule of finger of right hand Sleep apnea Wellness examination Additional Source Comments (unrecognized sect ion and content) No Status Records FoundNo Status Records FoundNo Status Records Found INFORMATION SOURCE (unrecogn ized section and content) DATE CREATED AUTHOR 01/07/2018 Roxanne Quispe [facility] DATE CREATED AUTHOR AUTHOR'S ORGANIZ ATION 02/18/2018 [facility] DATE CREATED AUTHOR AUTHOR'S ORGANIZ ATION 02/28/2019 Nomi Knight [facility] Care Teams (unrecognized sec tion and content) Team Status: Active Member Role Status Dates PHYSICIAN NO FAMILY Primary Care Provider Active Team Status: Inactive Member Role Status Dates PHYSICIAN NO FAMILY Primary Care Provider Active Start: February 28, 2024 End: February 28, 2024 Johana Long APRN ESTIMATING ENGINEER-C Attending Provider Active Start: February 28, 2024 End: February 28, 2024 Goals (unrecognized section and content) Goals may be documented in a n alternate section FOR RECORDS PERTAINING TO PATIENTS WHO ARE OR HAVE BEEN ENROLLED IN A CHEMICAL DEPENDENCY/SUBSTANCEABUSE PROGRAM, SOME INFORMATION MAY BE OMITTED. This clinical summary was aggregated from multiple sources. Caution should be exercised in using it in the provision of clinical care. This summary normalizes information from multiple sources, and as a consequence, information in this document may materially change the coding, format and clinical context of patient data. In addition, data may be omitted in some cases. CLINICAL DECISIONS SHOULD BE BASED ON THE PRIMARY CLINICAL RECORDS. [employer] provides no warranty or guarantee of the accuracy or completeness of information in this document.
== END 2024-04-22 20:56 | disposition home or self-care (01) ==
LOC: SLEEP 20:55
PROVIDERS: PCP Nurse Practitioner Family; Visit Provider Nurse Practitioner Family
DX: G47.33 Obstructive sleep apnea (adult) (pediatric) (principal)
CPT/HCPCS: 95811